=== PATIENT | male | born 1985 | race Caucasian/White ===

== ENCOUNTER 2020-08-16 11:09 | Emergency (ER) | payer MEDICAID ==
[~2020-08-16] VITALS: Ht 188 cm; Wt 84.1 kg
[2020-08-16] MEDS ORDERED: ketorolac tromethamine 15mg/ml inj. IM ONE (13:15)
[2020-08-16] MEDS ORDERED: DICL100G15 TOP (13:21)
[2020-08-16 13:38] VITALS: BP 140/70
== END 2020-08-16 13:39 | disposition home or self-care (01) ==
LOC: ER 11:10
DX: S89.91XA Unspecified injury of right lower leg, initial encounter (principal); M25.561 Pain in right knee; Z79.899 Other long term (current) drug therapy; W19.XXXA Unspecified fall, initial encounter; Y93.89 Activity, other specified; Y92.89 Other specified places as the place of occurrence of the external cause; Y99.8 Other external cause status
CPT/HCPCS: 73564; 96372; 99283; J1885